=== PATIENT | female | born 1990 | race Caucasian/White ===

== ENCOUNTER 2019-06-15 02:25 | Emergency (ER) | payer OTHER, SELFPAY ==
[2019-06-15 02:26] VITALS: BP 184/95; PULSE 94; RESP 18; TEMP 36.9; O2SAT 97; BMI 39.1
--- NOTE | 2019-06-15 02:55 | ED.DCSUM_ITS ---
- ER Visit Summary Date of Service: 06/15/19 Chief Complaint: Left thumb laceration History of Present Illness: The patient is a 29 F who presents with a laceration to her left thumb that occurred tonight while at work. Patient states she cut her thumb on a machine at work. Patient states it went through her glove and cut her. Patient describes the pain as throbbing. Patient states pain is worse with movement. Patient denies any paresthesias or weakness. Patient states her last tetanus was within 10 years. Physical Examination: Vital signs are stable. Patient is afebrile. Patient is in no acute distress. Skin is warm dry. There is a 1 cm full-thickness linear laceration over the ulnar aspect of the proximal phalanx of the left thumb there is mild gapping of the wound margins. There is no active bleeding noted. There are no foreign bodies noted. Sensation was intact to light touch in all digits. Capillary refill is less than 2 seconds in all digits. Radial pulses are equal bilaterally. There is full range of motion of the MP and IP joints of the left thumb. Emergency Department Course and Treatment: The wound was cleaned and irrigated with copious amounts of normal saline. The wound was anesthetized with 1% plain lidocaine locally. Wound was closed with 2 simple interrupted #4-0 nylon sutures under sterile technique. Patient tolerated the procedure well. Bacitracin dressing was applied. Patient was instructed to follow-up with [facility] or his primary care physician in 5 days for wound recheck and suture removal. Patient understood and was agreeable with the plan. All questions were answered. Disposition: Discharge home Impression: Left thumb laceration This note was generated with [employer] dictation software. It may contain incorrect words, spelling, and punctuation that were not noted in review of the chart prior to signing ED Disposition - Plan for ED Patient: Disposition: Home or Assisted Living Diagnosis: Laceration of left thumb Instructions: LACERATION, Hand Referrals: Raquel Little [Primary Care Provider] - 5 Days for suture removal [facility] [GROUP OF PHYSICIANS] - 5 Days for suture removal
[2019-06-15 03:27] VITALS: RESP 16
[2019-06-15] MEDS: BACITRACIN 15 GM Tube 1 APPLIC TOPICAL (03:27)
== END 2019-06-15 03:28 | disposition home or self-care (01) ==
PROVIDERS: Emergency Provider Emergency Medicine; PCP Family Medicine
DX: S61.012A Laceration without foreign body of left thumb without damage to nail, initial encounter (principal); M79.7 Fibromyalgia; F41.9 Anxiety disorder, unspecified; Z72.0 Tobacco use; Z79.899 Other long term (current) drug therapy; W26.8XXA Contact with other sharp object(s), not elsewhere classified, initial encounter; Y93.89 Activity, other specified; Y92.89 Other specified places as the place of occurrence of the external cause; Y99.0 Civilian activity done for income or pay; E66.9 Obesity, unspecified
CPT/HCPCS: 12001; 99283

== ENCOUNTER 2019-07-24 22:30 | Emergency (ER) | payer BC, SELFPAY ==
[2019-07-24 22:31] VITALS: BP 152/68; PULSE 84; RESP 16; TEMP 37; O2SAT 98; BMI 35.5
--- NOTE | 2019-07-24 22:55 | ED.VIS.GEN ---
History of Present Illness Chief Complaint: Eye Problem Narrative: Patient is a 29-year-old female who presents with swelling of her left eyelid. She initially began to have some pain a couple of days ago. This has since worsened. No drainage no matting. She does not recall any specific injury although she notes that she works with coolant at work and was uncertain if she had gotten some coolant in her eye. She does wear contacts. She complains of some blurry vision. No history of similar symptoms. She has otherwise recently been well. Past Medical History - Allergies and Home Meds Allergies/Adverse Reactions: Allergies morphine Adverse Reaction (Verified 07/24/19 22:31) Hives nitrofurantoin [From Macrobid] Adverse Reaction (Verified 07/24/19 22:31) Mitesh Primary Care Physician: Raquel Little [Primary Care Provider] - Past Medical History: - - Anxiety Smoking Status: Current every day smoker Review of Systems All systems negative except as indicated General: Denies: Fever Eyes: Reports: Blurred vision - left, - - Left eyelid edema Cardiovascular: Denies: Chest pain Respiratory: Denies: Dyspnea Physical Exam Vital Signs/Narrative: Vital Signs Temp Pulse Resp BP Pulse Ox 07/24/19 22:31 98.6 F 84 16 152/68 H 98 Inital Vital Signs reviewed: Yes General: Well nourished, Well developed Head: Normocephalic Eyes: - - Patient has left upper eyelid edema and slight erythema normal inspection of the conjunctivo-, no conjunctival injection or chemosis anterior chambers deep and quiet no hyphema Neck: Supple Cardiovascular: Regular rate Respiratory: No distress Skin: Normal color Neurological: Alert Psychological: Normal affect Diagnostic/Tx/Re-eval - Medical Decision Making Examination is consistent with blepharitis. Patient was instructed on local care. She was also given bacitracin to apply to the eyelid margin. She understands to return for new or worsening symptoms and was discharged home. ED Disposition - Plan for ED Patient: Disposition: Home or Assisted Living Diagnosis: Blepharitis of eyelid of left eye Instructions: Blepharitis Referrals: Raquel Little [Primary Care Provider] -
== END 2019-07-24 23:41 | disposition home or self-care (01) ==
LOC: ED 23:11
PROVIDERS: Emergency Provider Emergency Medicine; PCP Family Medicine
DX: H01.006 Unspecified blepharitis left eye, unspecified eyelid (principal); F41.9 Anxiety disorder, unspecified; F17.200 Nicotine dependence, unspecified, uncomplicated; Z79.899 Other long term (current) drug therapy
CPT/HCPCS: 99282